=== PATIENT | male | born 1955 | race Caucasian/White ===

== ENCOUNTER → 2017-05-04 | Outpatient (CLI) | payer OTHER ==
[~2017-05-04] MED LIST: MULT-231 PO
[2017-05-04 17:59] LABS: BASOPHIL # 0.1 10^3/ul (0.0-0.1); BASOPHILS % 0.6 % (0.0-2.0); EOSINOPHILS # 0.2 10^3/ul (0.0-0.5); EOSINOPHILS % 2.3 % (0.0-7.0); HEMATOCRIT 46.6 % (42.0-52.0); HEMOGLOBIN 15.7 g/dl (14.0-18.0); LYMPHOCYTES # 3.4 10^3/ul (0.8-2.9); LYMPHOCYTES % 36.6 % (15.0-51.0); MEAN CORPUSCULAR HEMOGLOBIN 30.3 pg (29.0-33.0); MEAN CORPUSCULAR HGB CONC 33.7 g/dl (32.0-37.0); MEAN CORPUSCULAR VOLUME 89.8 fl (82.0-101.0); MEAN PLATELET VOLUME 9.9 fl (7.4-10.4); MONOCYTE # 0.7 10^3/ul (0.3-0.9); MONOCYTES % 7.3 % (0.0-11.0); NEUTROPHIL # 4.9 10^3/ul (1.6-7.5); PLATELET COUNT 183 10^3/UL (140-415); RED BLOOD COUNT 5.19 10^6/ul (4.70-6.10); RED CELL DISTRIBUTION WIDTH 12.1 % (11.5-14.5); WHITE BLOOD COUNT 9.3 10^3/ul (4.8-10.8)
[2017-05-04 18:12] LABS: ADD UMIC NO; UR ASCORBIC ACID NEGATIVE (NEGATIVE); UR BILIRUBIN (Dip) NEGATIVE (NEGATIVE); UR BLOOD (Dip) NEGATIVE (NEGATIVE); UR CLARITY CLEAR (CLEAR); UR COLOR YELLOW (YELLOW); UR GLUCOSE (Dip) NEGATIVE (NEGATIVE); UR KETONES (Dip) NEGATIVE (NEGATIVE); UR LEUKOCYTE ESTERASE (Dip) NEGATIVE Leu/ul (NEGATIVE); UR NITRITE (Dip) NEGATIVE (NEGATIVE); UR SPECIFIC GRAVITY (Dip) 1.016 (1.003-1.030); UR TOTAL PROTEIN (Dip) NEGATIVE (NEGATIVE); UR UROBILINOGEN (Dip) NEGATIVE (NEGATIVE)
[2017-05-04 18:17] LABS: INR 0.96; PROTIME 12.8 Sec (12.2-14.2)
[2017-05-04 18:18] LABS: ALBUMIN 4.3 g/dl (3.3-4.9); ALBUMIN/GLOBULIN RATIO 1.13; BILIRUBIN,INDIRECT 0.2 mg/dl (0-1.1); BILIRUBIN,TOTAL 0.2 mg/dl (0.2-1.3); CALCIUM 9.8 mg/dl (8.4-10.2); CREATININE 0.99 mg/dl (0.61-1.24); PARTIAL THROMBOPLASTIN TIME 29.1 Sec (25.0-35.0); POTASSIUM 4.6 mmol/L (3.5-5.1); TOTAL PROTEIN 8.1 g/dl (6.1-8.1)
== END | disposition home or self-care (01) ==
LOC: LAB 17:32
PROVIDERS: ATTEND Orthopaedic Surgery
DX: Z01.818 Encounter for other preprocedural examination (principal)
CPT/HCPCS: 80053; 81003; 85025; 85610; 85651; 85730

== ENCOUNTER 2017-05-08 05:26 | Inpatient (IN) | payer OTHER ==
[2017-05-04 12:43] VITALS: BMI 23.4
[2017-05-08] VITALS (21 sets, daily range): BP systolic 103–142; BP diastolic 65–86; PULSE 63–102; RESP 11–23; Ht 171.4 cm; Wt 65.9 kg
[~2017-05-08] VITALS: Ht 171.4 cm; Wt 65.9 kg
[2017-05-08] MEDS ORDERED: LACTATED RINGER'S 1,000 ML IV* ONE (06:00)
[2017-05-08] MEDS ORDERED: CEFAZOLIN 2 GM/50 ML (PMX) 50 ML IVPB ONE (06:00)
--- NOTE | 2017-05-08 06:53 | HPN ---
Date/Time of Note Date/Time of Note DATE: 05/08/17 TIME: 06:53 Interval H&P Admission Note Pt. seen H&P reviewed: No system changes DAVIS LUU MD May 08, 2017 06:53
[2017-05-08] MEDS ORDERED: PROPOFOL 20 ML ONE ×2 (06:56→07:50)
[2017-05-08] MEDS ORDERED: BUPIVACAINE 0.25% (MPF) 30 ML INJ ONE (06:56)
[2017-05-08] MEDS ORDERED: ROCURONIUM 50 MG INJ ONE (06:56)
[2017-05-08] MEDS ORDERED: GELATIN SIZE 100 SPONGE ONE (06:56)
[2017-05-08] MEDS ORDERED: METOCLOPRAMIDE 10 MG INJ ONE (06:57)
[2017-05-08] MEDS ORDERED: POLYMYXIN/BACITRACIN 1L IRRIG ONE (06:57)
[2017-05-08] MEDS ORDERED: THROMBIN 5000 UNIT VIAL ONE (06:57)
[2017-05-08] MEDS ORDERED: MIDAZOLAM 1 MG/ML 2 ML INJ ONE (06:57)
[2017-05-08] MEDS ORDERED: HYDROmorphONE 2 MG/ML SYG ONE (07:05)
--- NOTE | 2017-05-08 08:01 | RADRPT ---
PROCEDURE: XR Lumbar Spine one view. CLINICAL INDICATION: Low back pain. Intraoperative. TECHNIQUE: Prone portable cross-table lateral. COMPARISON: No prior studies are available for comparison. FINDINGS: For the purposes of this report, the last apparent true disc level is considered to be L5-S1. Based on this, the posterior needle markers are present with the tips at the mid L3 level and lower L4 le fadi. IMPRESSION: 1. Intraoperative imaging as described above. RPTAT: QQ .Sergey Ramirez MD, Date Time Electronically viewed and signed by .Sergey Ramirez MD, on 05/08/2017 08:01 .R/
--- NOTE | 2017-05-08 08:03 | RADRPT ---
PROCEDURE: XR Lumbar Spine one view. CLINICAL INDICATION: Low back pain. Intraoperative. TECHNIQUE: Prone portable cross-table lateral. COMPARISON: Prior study done earlier the same day FINDINGS: For the purposes of this report, the last apparent true disc level is considered to be L5-S1. Based on this, the posterior surgical instruments are present overlying the spinous processes of L3, L4, and L5. IMPRESSION: 1. Intraoperative imaging as described above. RPTAT: QQ .Sergey Ramirez MD, MD Date Time Electronically viewed and signed by .Sergey Ramirez MD, MD on 05/08/2017 08:03 .R/
[2017-05-08] MEDS ORDERED: EPHEDrine SULFATE 50 MG/5 ML SYG ONE (08:10)
[2017-05-08] MEDS ORDERED: MEPERIDINE 25 MG INJ IV PRN (09:30)
[2017-05-08] MEDS ORDERED: ONDANSETRON 4 MG INJ IV PRN ×2 (09:30→10:00)
[2017-05-08] MEDS ORDERED: HYDROmorphONE (0.2 MG/ML) 10ML SYG IV PRN ×3 (09:30)
[2017-05-08] MEDS ORDERED: DIPHENHYDRAMINE 50 MG INJ IV PRN (09:30)
--- NOTE | 2017-05-08 09:47 | SIPON ---
Date/Time of Note Date/Time of Note DATE: 05/08/17 TIME: 09:44 Operative Report Preoperative Diagnosis Lumbar spinal stenosis at L3,L4 and L5 Postoperative Diagnosis Same Operation/Procedure Performed Central decompressive laminectomy at L3 Central decompressive laminectomy at L4 Central decompressive laminectomy at L5 Baxano transforaminal root decompression L5 on the right Medial facetectomy and foraminotomy L3-4 L4-5 and L5-S1 bilaterally Cosmetic wound closure (11 cm) Lateral localizing lumbar radiographs (2) Intraoperative nerve monitoring (2 hours) Surgeon see signature line accounts payable assistant Beatris La PA-C Anesthesia: general Estimated blood loss: 10 - 50 ml's Transfusion Required none Specimen Spinous processes of L3,L4 and L5 Grafts/Implants none Complications none DAVIS LUU MD May 08, 2017 09:47
[2017-05-08] MEDS ORDERED: HYDROCODONE/APAP (5/325) TAB PO PRN (10:00)
[2017-05-08] MEDS ORDERED: TRIMETHOBENZAMIDE 100 MG/ML VIAL IM PRN (10:00)
[2017-05-08] MEDS ORDERED: AL HYDROX/MG HYDROX/SIMETH 30 ML CUP PO PRN (10:00)
[2017-05-08] MEDS ORDERED: DIPHENHYDRAMINE 50 MG CAP PO PRN (10:00)
[2017-05-08] MEDS ORDERED: DIAZEPAM 5 MG TAB PO PRN (10:00)
[2017-05-08] MEDS ORDERED: NACL 0.9% 3 ML SYG IV SCH (10:00)
[2017-05-08] MEDS ORDERED: BETHANECHOL 25 MG TAB PO PRN (10:00)
[2017-05-08] MEDS ORDERED: DIAZEPAM 5 MG/ML SYG IM PRN (10:00)
[2017-05-08] MEDS ORDERED: CEPASTAT LOZENGE MT PRN (10:00)
[2017-05-08] MEDS ORDERED: PROCHLORPERAZINE 10 MG TAB PO PRN (10:00)
[2017-05-08] MEDS ORDERED: ZOLPIDEM 5 MG TAB PO PRN (10:00)
[2017-05-08] MEDS ORDERED: NALOXONE (0.4 MG/ML) INJ IV PRN (10:00)
[2017-05-08] MEDS ORDERED: ACETAMINOPHEN 325 MG TAB PO PRN (10:00)
[2017-05-08] MEDS: HYDROmorphONE 0.2 MG/ML PCA IV SCH (10:10)
--- NOTE | 2017-05-08 10:31 | OPR ---
DATE OF OPERATION: 05/08/2017 PREOPERATIVE DIAGNOSIS: Lumbar spinal stenosis at L3, L4, and L5. POSTOPERATIVE DIAGNOSIS: Lumbar spinal stenosis at L3, L4, and L5. OPERATION PERFORMED: 1. Central decompressive laminectomy at L3. 2. Central decompressive laminectomy at L4. 3. Central decompressive laminectomy at L5. 4. Baxano transforaminal root decompression L5 on the right. 5. Medial facetectomy and foraminotomy, L3-L4, L4-L5, L5-S1 bilaterally. 6. Cosmetic wound closure (11 cm). 7. Lateral localized lumbar radiographs (2). 8. Intraoperative nerve monitoring (2 hours). SURGEON: Dr. Messer HAT AND CAP SEWER: Beatris La PA-C ANESTHESIA: General endotracheal. ANESTHESIOLOGIST: Dr. Sullivan ESTIMATED BLOOD LOSS: 40 mL, none replaced. DRAINS: Two medium Hemovac drains employed. COMPLICATIONS: None. PERTINENT HISTORY AND PHYSICAL: This is a 62-year-old male who sustained an injury to his back in t he course of employment on 05/04/2012. He has had extensive care since that time, has remained symp tomatic with low back pain and difficulty walking more than a short distance. Preoperative workup i ncluding an MRI of the lumbar spine demonstrated lumbar spinal stenosis at L3, L4, and L5. Treatmen t options discussed with the patient, who elected to proceed with surgery. OPERATIVE FINDINGS AT SURGERY: Central stenosis at L3 and lateral recess stenosis at L4 and L5 with foraminal stenosis at those levels as well was confirmed at surgery. The baseline intraoperative n erve monitoring revealed a decrease in the L3 potential on the left of 40%, the L4 potential bilater ally at 30%, the L5 potential is bilaterally of 40%. These all returned to normal at the completion of surgery. OPERATIVE PROCEDURE: With the patient in supine position after satisfactory induction of general en dotracheal anesthesia by Dr. Sullivan, the patient was turned to the prone kneeling position on [facility] frame. All pressure points were carefully padded. Back was prepped and draped in usual sterile fashion. Athrombic pumps were applied to the legs below the knees to prevent venous stasis during and after procedure. An indwelling Kevin catheter was also placed preoperatively to facilita te bladder drainage during and after the procedure. Two spinal needles were placed next to what was felt to be the spinous process of L3 and L5, and lateral roentgenogram was taken which confirmed an atomic localization. An 11 cm incision was carried out midline from L3 to sacrum after skin was infiltrated with 0.25% Ma rcaine without epinephrine for postoperative analgesia. Superficial retractors were placed and hemo stasis secured with electrocautery. Throughout the procedure, copious amounts of antibacterial irri gating solution was used to periodically irrigate the wound. The fascia was incised in midline with a hot knife and a bilateral subperiosteal dissection carried out from L3 to the sacrum. Deep retra ctors were placed and deep hemostasis secured with electrocautery. A second intraoperative radiogra ph was taken with Lazaro clamps placed in what was felt to be the spinous process of L3, L4, and L5. This was confirmed with second x-ray. A central decompressive laminectomy at L3, L4, and L5 was then carried out using a Meron right-ang le bone rongeur, Leksell rongeur, Kerrison punches and curettes. Ligamentum flavum was incised with sharp dissection. The operating microscope was moved into place. A medial facetectomy and foramin otomy was accomplished at L3-L4, L4-L5, and L5-S1 bilaterally using small hand osteotome, mallet, Ke rrison punches and curettes. At this point, there was still some distal foraminal stenosis at L5 on the right, and the Baxano instrumentation was brought onto the field. The Ipsi probe was placed in to the L5 foramen, and the guidewire passed in the usual fashion. The neuro probe was then used to isolate the exiting L5 nerve root. With this having been assured, a 7.5 mm Baxano rasp was inserted into the foramen and multiple reciprocations carried out to enlarge the posterior aspect of the for amen. The instrumentation was withdrawn. The foramen was flushed with 20 mL of irrigating solution and hemostasis secured with bipolar electrocautery on low setting. Anesthesiologist was asked to p erform a Valsalva maneuver at 40 mmHg and no spinal fluid leak was noted. The wound was then closed in layers over 2 medium Hemovac drains using #1 Stratafix sutures on deep paralumbar musculature and deep fascia of back, 2-0 Stratafix sutures in subcu tissue, and a 4-0 Ken ryl subcuticular cosmetic closing suture on the skin. Dermabond and sterile compressive dressings w ere applied. Patient having tolerated procedure well, was then turned to supine position onto his b ed and extubated by Dr. Sullivan. He was transported to recovery room in satisfactory condition. At the conclusion of the procedure, sponge, instrument, and needle counts were all correct. NEED FOR FINANCIAL SECRETARY: During this spinal surgical procedure, my assistant track and field coach was used to retrac t and protect the spinal nerves and dural sac. My assistant track and field coach also employed the suction catheters to e vacuate blood from the surgical field to improve visualization of the neural structures. The assista nt was medically necessary to facilitate the completion of the surgery in a safe and expeditious man ner. [facility] regulations, as well as hospital bylaws, preclude the use of non-licensed [facility] care personnel such as operating room technicians, to perform these functions. Throughout the procedure, neural monitoring was carried out by [employer] including EMG, SSEP and MEP monitoring of the L3, L4, L5 and S1 nerve roots bilaterally along with s arpit cord potentials. These were interpreted by neurologists employed by [employer]. Dictated By: DAVIS HAMPTON/NALLELY Conf#: [id number] DID#: [id number] CC: LESLIE WHITEHEAD DO;*End*
[2017-05-08] MEDS: DEXTROSE 5%-0.45% NACL 1,000 ML IV SCH ×2 (11:35→20:24)
[2017-05-08] MEDS: CEFAZOLIN 1 GM/50 ML (PMX) 50 ML IVPB SCH ×2 (12:23→18:06)
--- NOTE | 2017-05-08 19:35 | PN ---
Date/Time of Note Date/Time of Note DATE: 05/08/17 TIME: 19:30 Assessment/Plan VTE Prophylaxis VTE Prophylaxis Intervention: SCD's (Ambulation to prevent DVT), other Lines/Catheters IV Catheter Type (from Nrsg): Peripheral IV Urinary Cath still in place: No Assessment/Plan Chief Complaint/Hosp Course Lower back pain chronic not responsive to conservative treatment. Underwent 3 level Lumbar laminectomy L3-4, L4-L5 and L5-S1. Problems: Assessment/Plan As per Dr. Messer's post operative orders Stable post op Subjective 24 Hr Interval Summary Free Text/Dictation Moderate post op lower back pain. No leg pain. No shortness of breath. Slight nausea , no emesis. Exam/Review of Systems Vital Signs Vitals Vital Signs Date Time Temp Pulse Resp B/P Pulse Ox O2 Delivery O2 Flow Rate FiO2 05/08/17 17:00 18 05/08/17 13:15 77 121/70 98 Room Air 05/08/17 10:30 98.1 Exam One hemovac drain in place Neg SLR to 80 degrees bilaterally. Sensation intact lower extremities. Dressing clean and dry lumbar spine. Constitutional: alert, oriented, well developed Psych: nl mood/affect Head: atraumatic, normocephalic Eyes: nl conjunctiva ENMT: nl external ears & nose, nl lips & teeth, nl nasal mucosa & septum Neck: non-tender, supple Respiratory: clear to auscultation, normal air movement Cardiovascular: regular rate and rhythm Gastrointestinal: nl liver, spleen, non-tender, soft Extremities: normal pulses Neurological: DIRECTOR OF WOMEN'S SERVICES II-XII intact, nl mental status Medications Medications Current Medications Dextrose/Sodium Chloride (D5-1/2ns) 1,000 ml @ 100 mls/hr Q10H IV Last administered on 05/08/17t 11:35; Admin Dose 100 MLS/HR; Start 05/08/17 at 09: 40 Acetaminophen/ Hydrocodone Bitart ([place] (5/325)) 1 tab Q4H PRN PO PAIN LEVEL 1 -5; Start 05/08/17 at 10:00; Status Future Hold Acetaminophen/ Hydrocodone Bitart 2 tab 2 tab Q4H PRN PO PAIN LEVEL 6-10; Start 05/08/17 at 10:00; Status Future Hold Cefazolin Sodium (Ancef 1 Gm/50 ml (Pmx)) 50 ml @ 100 mls/hr Q6 IVPB Last administered on 05/08/17 18:06; Admin Dose 100 MLS/HR; Start 05/08/17 at 12: 00; Stop 05/09/17 at 06:29 Zolpidem Tartrate (Ambien) 5 mg HS PRN PO INSOMNIA; Start 05/08/17 at 10:00 Prochlorperazine (Compazine) 10 mg Q4H PRN PO NAUSEA AND/OR VOMITING; Start at 10:00 Trimethobenzamide HCl (Tigan) 200 mg Q4H PRN IM NAUSEA AND/OR VOMITING; Start 05/08/17 at 10:00 Ondansetron HCl (Zofran Inj) 4 mg Q6H PRN IV NAUSEA AND/OR VOMITING Last administered on 05/08/17t 19:04; Admin Dose 4 MG; Start 05/08/17 at 10:00 Al Hydrox/Mg Hydrox/Simethicone (Mag-Al Plus) 15 ml Q4H PRN PO CONSTIPATION; Start 05/08/17 at 10:00 Docusate Sodium (Colace) 100 mg BID PO ; Start 05/09/17 at 09:00 Acetaminophen (Tylenol Tab) 650 mg Q4H PRN PO TEMP GREATER THAN 101F OR RAMOS; Start 05/08/17 at 10:00 Ascorbic Acid (Vitamin C) 1,000 mg BID PO ; Start 05/09/17 at 09:00 Ferrous Sulfate (Ferrous Sulfate (Ec)) 325 mg TID PO ; Start 05/09/17 at 09:00 Ranitidine HCl (Zantac) 150 mg BID PO ; Start 05/08/17 at 21:00 Diazepam (Valium) 5 mg Q4H PRN PO MUSCLE SPASMS; Start 05/08/17 at 10:00 Diazepam (Valium) 5 mg Q4H PRN IM MUSCLE SPASMS; Start 05/08/17 at 10:00 Phenol (Cepastat Lozenge) 1 lozenge PRN PRN MT SORE THROAT; Start 05/08/17 at 10:00 Bethanechol Chloride (Urecholine) 25 mg PRN PRN PO UNABLE TO VOID; Start 05/08 at 10:00 Diphenhydramine HCl (Benadryl) 50 mg Q6H PRN PO PRURITUS; Start 05/08/17 at 10 :00 Hydromorphone HCl (Dilaudid RAW STOCK DRIER TENDER) Q4PCA IV Last administered on 05/08/17t 10: 10; Admin Dose 6 MG; Start 05/08/17 at 10:00 Naloxone HCl (Narcan) 0.2 mg Q2M PRN IV RR 8 BREATHS/MIN OR LESS; Start at 10:00 LESLIE WHITEHEAD MD May 08, 2017 19:35
[2017-05-08] MEDS: RANITIDINE 150 MG TAB PO SCH (20:23)
[2017-05-09] MEDS: CEFAZOLIN 1 GM/50 ML (PMX) 50 ML IVPB SCH ×2 (00:13→06:08)
[2017-05-09 00:22] VITALS: BP 139/66; RESP 18
[2017-05-09] MEDS: HYDROmorphONE 0.2 MG/ML PCA IV SCH (00:28)
[2017-05-09 05:19] LABS: HEMATOCRIT 39.6 % (42.0-52.0); HEMOGLOBIN 13.5 g/dl (14.0-18.0)
[2017-05-09 05:30] LABS: CALCIUM 8.7 mg/dl (8.4-10.2); CREATININE 0.81 mg/dl (0.61-1.24); POTASSIUM 3.9 mmol/L (3.5-5.1)
[2017-05-09] MEDS: DEXTROSE 5%-0.45% NACL 1,000 ML IV SCH ×2 (05:40→15:40)
[2017-05-09 06:13] VITALS: BP 113/64; PULSE 81; RESP 18
--- NOTE | 2017-05-09 07:10 | PN ---
Date/Time of Note Date/Time of Note DATE: 05/09/17 TIME: 07:06 Assessment/Plan Lines/Catheters IV Catheter Type (from Nrs): Saline Lock Kevin in Place (from Nrs): Yes Subjective 24 Hr Interval Summary Patient is postop day #1 following a multilevel decompressive laminectomy from L3-L5. He is resting comfortably in bed. Neuro-vascular structures are intact distally. A.m. lab work is unremarkable. He is afebrile. His Hemovac output is 70 cc and will be left in place at this time. He will be mobilized as tolerated by physical therapy. Exam/Review of Systems Vital Signs Vitals Vital Signs Date Time Temp Pulse Resp B/P Pulse Ox O2 Delivery O2 Flow Rate FiO2 05/09/17 06:13 98.4 81 18 113/64 95 Room Air Intake and Output 05/08/17 05/08/17 05/09/17 15:00 23:00 07:00 Intake Total 1550 ml 1050 ml 1250 ml Output Total 390 ml 380 ml 1270 ml Balance 1160 ml 670 ml -20 ml Results Result Diagram: 05/09/17 0425 05/09/17 0426 DAVIS LUU MD May 09, 2017 07:10
[2017-05-09] MEDS ORDERED: BETHANECHOL 25 MG TAB PO PRN (08:00)
[2017-05-09] MEDS: FERROUS SULFATE (EC) 325 MG TAB PO SCH ×2 (08:23→13:23)
[2017-05-09] MEDS: RANITIDINE 150 MG TAB PO SCH (08:23)
[2017-05-09 08:40] VITALS: BP 137/72; RESP 18
[2017-05-09] MEDS ORDERED: DOCUSATE SODIUM 100 MG CAP PO SCH (09:00)
[2017-05-09] MEDS ORDERED: ASCORBIC ACID 500 MG TAB PO SCH (09:00)
[2017-05-09 11:49] LABS: ADD UMIC YES; UR ASCORBIC ACID NEGATIVE (NEGATIVE); UR BACTERIA FEW /HPF (NONE SEEN); UR BILIRUBIN (Dip) NEGATIVE (NEGATIVE); UR BLOOD (Dip) 3+ mg/dL (NEGATIVE); UR CLARITY CLEAR (CLEAR); UR COLOR STRAW (YELLOW); UR GLUCOSE (Dip) NEGATIVE (NEGATIVE); UR KETONES (Dip) NEGATIVE (NEGATIVE); UR LEUKOCYTE ESTERASE (Dip) NEGATIVE Leu/ul (NEGATIVE); UR NITRITE (Dip) NEGATIVE (NEGATIVE); UR RBC 7 /HPF (0-5); UR SPECIFIC GRAVITY (Dip) 1.006 (1.003-1.030); UR TOTAL PROTEIN (Dip) NEGATIVE (NEGATIVE); UR UROBILINOGEN (Dip) NEGATIVE (NEGATIVE)
[2017-05-09] MEDS: HYDROCODONE/APAP (5/325) TAB PO PRN ×2 (13:24→17:58)
[2017-05-09 15:00] VITALS: BP 115/64; RESP 18
--- NOTE | 2017-05-09 18:39 | PN ---
Date/Time of Note Date/Time of Note DATE: 05/09/17 TIME: 18:34 Assessment/Plan VTE Prophylaxis VTE Prophylaxis Intervention: SCD's (SCD's discontinued on discharge. Ambulation encouraged.) Lines/Catheters IV Catheter Type (from Nrsg): Saline Lock Urinary Cath still in place: No Assessment/Plan Chief Complaint/Hosp Course Lower back pain chronic not responsive to conservative treatment. Underwent 3 level Lumbar laminectomy L3-4, L4-L5 and L5-S1. Problems: Assessment/Plan S/P 3 level decompressive laminectomy for spinal stenosis This patient is ready for discharge and will follow up with Dr. Messer in office as scheduled. Subjective 24 Hr Interval Summary Free Text/Dictation Pt is feeling much better this evening. No radicular pain to his legs. He has just lower back pain at a 5-6/10. He is ready for discharge. His hemovac drain has been removed and he has been cleared by the physical therapist to go home. Exam/Review of Systems Vital Signs Vitals Vital Signs Date Time Temp Pulse Resp B/P Pulse Ox O2 Delivery O2 Flow Rate FiO2 05/09/17 15:00 98.3 74 18 115/64 96 05/09/17 06:13 Room Air Intake and Output 05/08/17 05/08/17 05/09/17 15:00 23:00 07:00 Intake Total 1550 ml 1050 ml 1300 ml Output Total 390 ml 380 ml 1270 ml Balance 1160 ml 670 ml 30 ml Exam Incision is clean and dry lumbar spine. Str. leg raise test is negative to 90 degrees bilaterally supine and upright. No sensory changes L2-S1 bilaterally. EHL's 5/5 bilaterally. Constitutional: alert, oriented, well developed Psych: nl mood/affect Head: atraumatic, normocephalic Eyes: EOMI, nl conjunctiva, nl lids Neck: non-tender, supple Respiratory: clear to auscultation, normal air movement Cardiovascular: nl pulses, regular rate and rhythm Gastrointestinal: nl liver, spleen, non-tender, soft Extremities: normal pulses Neurological: PROCESS SAFETY ENGINEER II-XII intact, nl mental status Skin: nl turgor Results Result Diagram: 05/09/17 0425 05/09/17 0426 Results 24 hrs Laboratory Tests Test 05/09/17 04:25 05/09/17 04:26 05/09/17 09:50 Hemoglobin 13.5 L Hematocrit 39.6 L Sodium Level 139 Potassium Level 3.9 Chloride Level 105 Carbon Dioxide Level 26 Anion Gap 12 Blood Urea Nitrogen 13 Creatinine 0.81 Glucose Level 111 Calcium Level 8.7 Urine Color STRAW Urine Clarity CLEAR Urine pH 6.0 Urine Specific [place] 1.006 Urine Ketones NEGATIVE Urine Nitrite NEGATIVE Urine Bilirubin NEGATIVE Urine Urobilinogen NEGATIVE Urine Leukocyte Esterase NEGATIVE Urine Microscopic RBC 7 H Urine Microscopic WBC 3 Urine Bacteria FEW A Urine Hemoglobin 3+ H Urine Glucose NEGATIVE Urine Total Protein NEGATIVE Medications Medications Current Medications Dextrose/Sodium Chloride (D5-1/2ns) 1,000 ml @ 100 mls/hr Q10H IV Last administered on 05/08/17 20:24; Admin Dose 100 MLS/HR; Start 05/08/17 at 09: 40 Acetaminophen/ Hydrocodone Bitart ([place] (5/325)) 1 tab Q4H PRN PO PAIN LEVEL 1 -5; Start 05/08/17 at 10:00; Status Future hold Acetaminophen/ Hydrocodone Bitart ([place] (5/325)) 2 tab Q4H PRN PO PAIN LEVEL 6 -10 Last administered on 05/09/17 17:58; Admin Dose 2 TAB; Start 05/08/17 at 10:00; Status Future hold Zolpidem Tartrate (Ambien) 5 mg HS PRN PO INSOMNIA; Start 05/08/17 at 10:00 Prochlorperazine (Compazine) 10 mg Q4H PRN PO NAUSEA AND/OR VOMITING; Start at 10:00 Trimethobenzamide HCl (Tigan) 200 mg Q4H PRN IM NAUSEA AND/OR VOMITING; Start 05/08/17 at 10:00 Ondansetron HCl (Zofran Inj) 4 mg Q6H PRN IV NAUSEA AND/OR VOMITING Last administered on 05/08/17 19:04; Admin Dose 4 MG; Start 05/08/17 at 10:00 Al Hydrox/Mg Hydrox/Simethicone (Mag-Al Plus) 15 ml Q4H PRN PO CONSTIPATION; Start 05/08/17 at 10:00 Docusate Sodium (Colace) 100 mg BID PO Last administered on 05/09/17 08:23; Admin Dose 100 MG; Start 05/09/17 at 09:00 Acetaminophen (Tylenol Tab) 650 mg Q4H PRN PO TEMP GREATER THAN 101F OR RAMOS; Start 05/08/17 at 10:00 Ascorbic Acid (Vitamin C) 1,000 mg BID PO Last administered on 05/09/17 08:22 ; Admin Dose 1,000 MG; Start 05/09/17 at 09:00 Ferrous Sulfate (Ferrous Sulfate (Ec)) 325 mg TID PO Last administered on 05/09 13:23; Admin Dose 325 MG; Start 05/09/17 at 09:00 Ranitidine HCl (Zantac) 150 mg BID PO Last administered on 05/09/17 08:23; Admin Dose 150 MG; Start 05/08/17 at 21:00 Diazepam (Valium) 5 mg Q4H PRN PO MUSCLE SPASMS; Start 05/08/17 at 10:00 Diazepam (Valium) 5 mg Q4H PRN IM MUSCLE SPASMS; Start 05/08/17 at 10:00 Phenol (Cepastat Lozenge) 1 lozenge PRN PRN MT SORE THROAT; Start 05/08/17 at 10:00 Bethanechol Chloride (Urecholine) 25 mg PRN PRN PO UNABLE TO VOID Last administered on 05/09/17 10:01; Admin Dose 25 MG; Start 05/08/17 at 10:00 Diphenhydramine HCl (Benadryl) 50 mg Q6H PRN PO PRURITUS; Start 05/08/17 at 10 :00 Hydromorphone HCl (Dilaudid ASSAYER) Q4PCA IV Last administered on 05/09/17 00: 28; Admin Dose 6 MG; Start 05/08/17 at 10:00 Naloxone HCl (Narcan) 0.2 mg Q2M PRN IV RR 8 BREATHS/MIN OR LESS; Start at 10:00 LESLIE WHITEHEAD MD May 09, 2017 18:39
== END 2017-05-09 19:25 | disposition home or self-care (01) | DRG 517 ==
LOC: REC 05:26 → MS1 10:34
PROVIDERS: ADMIT Orthopaedic Surgery; ATTEND Orthopaedic Surgery
PROC: 4A11X4G Monitoring of Peripheral Nervous Electrical Activity, Intraoperative, External Approach (ICD-10-PCS; 2017-05-08)
PROC: 01NB0ZZ Release Lumbar Nerve, Open Approach (ICD-10-PCS; principal; 2017-05-08 07:00)
DX: M48.062 Spinal stenosis, lumbar region with neurogenic claudication (principal); I10 Essential (primary) hypertension; E78.5 Hyperlipidemia, unspecified
CPT/HCPCS: 72020; 80048; 81001; 85014; 85018; 86850; 86900; 86901; 86920; 87086; 97116; 97162; 97530; J0690; J1170; J2250; J2405; J2765; J7042; J7120